=== PATIENT | female | born 1975 | race Caucasian/White ===

== ENCOUNTER → 2024-10-09 | Outpatient (CLI) | payer BC | END | disposition home or self-care (01) | LOC: MAMMO 10:06 | PROVIDERS: ATTEND Family Medicine | DX: R92.1 Mammographic calcification found on diagnostic imaging of breast (principal); R92.323 Mammographic fibroglandular density, bilateral breasts; N64.4 Mastodynia | CPT/HCPCS: 76642; 77062; 77066; G0279 ==